=== PATIENT | female | born 1985 | race Caucasian/White ===

== ENCOUNTER 2016-05-21 16:21 | Emergency (ER) | payer BC ==
[~2016-05-21] VITALS: Ht 170.2 cm; Wt 109.1 kg
[~2016-05-21 16:21] MED LIST: MOTRIN 600600 MG/TAB PO; PERCOCET 325 MG1 TA2 PO; PRENATAL1 TA1 PO; ZANTAC 7575 MG PO
[2016-05-21 16:24] VITALS: TEMP 98.3
[2016-05-21] MEDS ORDERED: AMOXICILLI400 MG/51 PO (17:41)
[2016-05-21] MEDS ORDERED: PREDNISONE20 MG PO (17:53)
[2016-05-21] MEDS ORDERED: PHENERGAN W/CO120 M1 PO (17:56)
[2016-05-21 18:41] VITALS: BP 126/81; PULSE 106
== END 2016-05-21 18:43 | disposition home or self-care (01) ==
LOC: COL.ER 16:21
DX: O99.512 Diseases of the respiratory system complicating pregnancy, second trimester (principal); J40 Bronchitis, not specified as acute or chronic; Z3A.21 21 weeks gestation of pregnancy
CPT/HCPCS: J7030; J7512

== ENCOUNTER 2016-09-18 07:15 | Inpatient (IN) | payer BC ==
[2016-09-18] VITALS (39 sets, daily range): BP systolic 106–167; BP diastolic 60–90; PULSE 77–125; TEMP 8.2
[~2016-09-18] VITALS: Ht 170.2 cm; Wt 115.5 kg
[~2016-09-18 07:15] MED LIST changes: +AMOXICILLI400 MG/51 PO; +PHENERGAN W/CO120 M1 PO; +PREDNISONE20 MG PO
[2016-09-18] MEDS ORDERED: PEPCID 20MG TAB20 MG PO (08:14)
[2016-09-18] MEDS ORDERED: TUMS ULTRA ST1000 MG PO (08:15)
[2016-09-18] MEDS ORDERED: SINGULAIR 110 MG/TAB PO (08:15)
[2016-09-18] MEDS ORDERED: PRENATAL (08:15)
[2016-09-18] MEDS ORDERED: BENADRYL50 MG PO (08:16)
[2016-09-18] MEDS ORDERED: PERCOCET 325 MG1 TA2 PO (08:17)
[2016-09-18] MEDS ORDERED: MOTRIN 800800 MG/TAB PO (08:17)
[2016-09-18 08:31] LABS: BASO % 0.2 % (0.0-2.0); EOS # 0.1 (0.0-0.7); GRAN # 5.9 (1.4-6.5); GRAN % 67.6 % (42.2-75.2); LYMPH # 1.9 (1.2-3.4); LYMPH % 21.4 % (20.0-51.0); MEAN CELL VOLUME 87 fl (80.0-100.0); MEAN CORPUSCULAR HGB CONC 33 g/dl (33.0-37.0); MEAN PLATELET VOLUME 10.7 fl (7.4-10.4); MONO # 0.8 (0.1-0.6); MONO % 9.5 % (1.7-9.3); PLATELET COUNT 260 K/mm3 (130-400); RED BLOOD COUNT 4.07 M/mm3 (4.10-5.30); REDCELL DISTRIBUTION WIDTH-CV 13.1 % (11.5-14.5); WHITE BLOOD COUNT 8.7 K/mm3 (4.8-10.8)
[2016-09-18 08:40] LABS: HEMATOCRIT 35.3 % (37.0-47.0); HEMOGLOBIN 11.8 g/dl (12.5-16.0); MEAN CORPUSCULAR HEMOGLOBIN 29 pg (27.0-31.0)
[2016-09-19 08:30] VITALS: BP 120/77; PULSE 82; TEMP 97.7
== END 2016-09-19 17:15 | disposition home or self-care (01) | DRG 775 ==
LOC: LDR 07:15 → OB 07:15 → LDR 10:25 → OB 18:00 → LDRO 09-25 09:48 → EDSTATUS 09-25 10:23
PROVIDERS: Obstetrics & Gynecology
PROC: 10E0XZZ Delivery of Products of Conception, External Approach (ICD-10-PCS; principal; 2016-09-18)
PROC: 0HQ9XZZ Repair Perineum Skin, External Approach (ICD-10-PCS; 2016-09-18)
DX: O70.0 First degree perineal laceration during delivery (principal); O75.89 Other specified complications of labor and delivery; Z3A.39 39 weeks gestation of pregnancy; Z37.0 Single live birth
CPT/HCPCS: J2210; J2405; J2590; J7120